=== PATIENT | female | born 1940 | race Caucasian/White ===

== ENCOUNTER 2017-12-11 15:58 | Emergency (ER) | payer MEDICARE ==
[~2017-12-11] VITALS: Ht 154.9 cm; Wt 69.5 kg
[2017-12-11] MEDS ORDERED: LISINOPRIL40 MG PO (16:08)
[2017-12-11] MEDS ORDERED: FUROSEMIDE20 MG PO (16:08)
[2017-12-11] MEDS ORDERED: HCTZ 25MG25 MG PO (16:08)
[2017-12-11] MEDS ORDERED: AMLODIPINE BESYL5 MG PO (16:08)
[2017-12-11] MEDS ORDERED: PRAVASTATIN SOD40 MG PO (16:08)
[2017-12-11 16:56] LABS: HEMATOCRIT 37.7 % (37.0-47.0); HEMOGLOBIN 12.4 g/dL (12.5-16.0); LYMPH# 1.2 (1.50-4.00); MEAN CELL VOLUME 87 fl (78-100); MEAN CORPUSCULAR HEMOGLOBIN 28 pg (27-31); MEAN CORPUSCULAR HGB CONC 33 g/dL (33-37); MEAN PLATELET VOLUME 10.3 fl (7.4-10.4); MONO # 0.9 (0.20-0.80); NEU # 8.3 (1.40-6.50); PLATELET COUNT 291 K/mm3 (130-400); RED BLOOD COUNT 4.36 M/mm3 (4.10-5.30); RED CELL DISTRIBUTION WIDTH 13.4 % (11.5-14.5); WHITE BLOOD COUNT 10.3 K/mm3 (4.8-10.8)
[2017-12-11 17:03] LABS: ALBUMIN 4.4 g/dL (3.5-5.0); CALCIUM 9.1 mg/dL (8.4-10.2); TOTAL BILIRUBIN 0.8 mg/dL (0.2-1.3); TOTAL PROTEIN 7.5 g/dL (6.3-8.2)
[2017-12-11 19:35] LABS: URINE APPEARANCE HAZY; URINE COLOR YELLOW
[2017-12-11 19:36] LABS: URINE BILIRUBIN NEGATIVE (NEGATIVE); URINE BLOOD TRACE (NEGATIVE); URINE GLUCOSE NEGATIVE (NEGATIVE); URINE KETONE NEGATIVE (NEGATIVE); URINE LEUKOCYTE ESTERASE 1+ (NEGATIVE); URINE NITRATE POSITIVE (NEGATIVE); URINE PROTEIN(semi-quant) TRACE mg/dL (NEGATIVE); URINE UROBILINOGEN NORMAL (NORMAL)
[2017-12-11] MEDS ORDERED: CEPHALEXIN500 M1 PO (19:46)
[2017-12-11] MEDS ORDERED: POTASSIUM CH2 MEQ/ML PO (19:48)
[2017-12-11] MEDS ORDERED: ZOFRAN ODT4 MG PO (19:50)
[2017-12-11 20:50] VITALS: BP 146/68
== END 2017-12-11 20:50 | disposition home or self-care (01) ==
LOC: ED 15:58
PROVIDERS: Nurse Practitioner
DX: N30.90 Cystitis, unspecified without hematuria (principal); R11.2 Nausea with vomiting, unspecified; R19.7 Diarrhea, unspecified; E87.6 Hypokalemia; I10 Essential (primary) hypertension; Z90.49 Acquired absence of other specified parts of digestive tract; Z79.899 Other long term (current) drug therapy
CPT/HCPCS: J0696; J2405; J2765; J7030

== ENCOUNTER 2023-05-29 10:32 | Emergency (ER) | payer MEDICARE ==
[~2023-05-29] VITALS: Ht 152.4 cm; Wt 68.8 kg
[~2023-05-29 10:32] MED LIST: AMLODIPINE BESYL5 MG PO; CEPHALEXIN500 M1 PO; FUROSEMIDE20 MG PO; HCTZ 25MG25 MG PO; LISINOPRIL40 MG PO; POTASSIUM CH2 MEQ/ML PO; PRAVASTATIN SOD40 MG PO; ZOFRAN ODT4 MG PO
[2023-05-29] MEDS ORDERED: AZO BLADDER CO300 MG PO (10:48)
[2023-05-29] MEDS ORDERED: Ketorolac 30 MG/ML VIAL IM ONE (11:30)
[2023-05-29] MEDS ORDERED: KETOROLAC10 MG PO (14:21)
[2023-05-29 14:33] VITALS: BP 198/90
[2023-06-07] MEDS ORDERED: CIPRO250 M1 PO (08:33)
[2023-06-07] MEDS ORDERED: CYCLOBENZAPRINE10 M1 PO (08:34)
[2023-06-07] MEDS ORDERED: LIDOCAINE PAIN1 EACH TP (08:36)
[2023-06-07] MEDS ORDERED: PREDNISONE20 M1 PO (08:38)
== END 2023-05-29 14:32 | disposition home or self-care (01) ==
LOC: ED 10:32
DX: M54.42 Lumbago with sciatica, left side (principal); I10 Essential (primary) hypertension
CPT/HCPCS: J1885

== ENCOUNTER 2023-06-02 16:55 | Emergency (ER) | payer MEDICARE ==
[~2023-06-02] VITALS: Ht 149.9 cm; Wt 68.8 kg
[~2023-06-02 16:55] MED LIST changes: +AZO BLADDER CO300 MG PO; +KETOROLAC10 MG PO
[2023-06-02] MEDS ORDERED: traMADol 50 MG TAB PO ONE (18:00)
[2023-06-02] MEDS ORDERED: Gabapentin 300 MG CAP PO ONE (19:30)
[2023-06-02] MEDS ORDERED: GABAPENTIN400 M2 PO (20:21)
[2023-06-02 21:06] VITALS: BP 183/71
[2023-06-07] MEDS ORDERED: CIPRO250 M1 PO (08:33)
[2023-06-07] MEDS ORDERED: CYCLOBENZAPRINE10 M1 PO (08:34)
[2023-06-07] MEDS ORDERED: LIDOCAINE PAIN1 EACH TP (08:36)
[2023-06-07] MEDS ORDERED: PREDNISONE20 M1 PO (08:38)
== END 2023-06-02 21:06 | disposition home or self-care (01) ==
LOC: ED 16:55
DX: M54.32 Sciatica, left side (principal)

== ENCOUNTER 2023-06-04 11:38 | Emergency (ER) | payer MEDICARE ==
[~2023-06-04] VITALS: Ht 152.4 cm; Wt 70.5 kg
[~2023-06-04 11:38] MED LIST changes: +GABAPENTIN400 M2 PO
[2023-06-04] MEDS ORDERED: CYCLOBENZAPRINE10 M1 PO (11:53)
[2023-06-04] MEDS ORDERED: MEDROL 4MG DOSPA4 MG PO (11:54)
[2023-06-04 13:34] LABS: ALBUMIN 3.8 g/dL (3.4-4.8); SODIUM 137 mmol/L (136-145)
[2023-06-04 13:37] LABS: GLUCOSE 140 mg/dL (65-105); TOTAL PROTEIN 6.5 g/dL (6.2-8.1)
[2023-06-04 13:38] LABS: CARBON DIOXIDE 23 mmol/L (23-31)
[2023-06-04 13:39] LABS: TOTAL BILIRUBIN 0.4 mg/dL (0.2-1.2)
[2023-06-04 13:42] LABS: AST-SGOT 18 U/L (5-34)
[2023-06-04 13:43] LABS: ALT/SGPT 10 U/L (0-55)
[2023-06-04 13:49] LABS: TROPONIN-I < 0.030 ng/mL (0.00-0.033)
[2023-06-04 13:51] LABS: BASO # 0.01 K/mm3 (0.02-0.10); HEMATOCRIT 34.2 % (37.0-47.0); HEMOGLOBIN 10.9 g/dL (12.5-16.0); LYMPH# 0.78 K/mm3 (1.50-4.00); MEAN CELL VOLUME 91 fl (78-100); MEAN CORPUSCULAR HEMOGLOBIN 29 pg (27-31); MEAN CORPUSCULAR HGB CONC 32 g/dL (33-37); MEAN PLATELET VOLUME 9.8 fl (7.4-10.4); MONO # 0.13 K/mm3 (0.20-0.80); NEU # 6.07 K/mm3 (1.40-6.50); PLATELET COUNT 216 K/mm3 (130-400); RED BLOOD COUNT 3.76 M/mm3 (4.10-5.30)
[2023-06-04 14:34] LABS: URINE APPEARANCE CLOUDY (CLEAR); URINE COLOR YELLOW (YELLOW)
[2023-06-04 14:35] LABS: URINE BILIRUBIN NEGATIVE (NEGATIVE); URINE BLOOD NEGATIVE (NEGATIVE); URINE GLUCOSE NEGATIVE (NEGATIVE); URINE KETONE NEGATIVE (NEGATIVE); URINE LEUKOCYTE ESTERASE TRACE (NEGATIVE); URINE NITRATE NEGATIVE (NEGATIVE); URINE PROTEIN(semi-quant) NEGATIVE (NEGATIVE)
[2023-06-04] MEDS ORDERED: cefTRIAXone 1 G in Water For Injection,Sterile 10 ML IV ONE (15:00)
[2023-06-04 15:15] VITALS: BP 125/57
[2023-06-07] MEDS ORDERED: CIPRO250 M1 PO (08:33)
[2023-06-07] MEDS ORDERED: CYCLOBENZAPRINE10 M1 PO (08:34)
[2023-06-07] MEDS ORDERED: LIDOCAINE PAIN1 EACH TP (08:36)
[2023-06-07] MEDS ORDERED: PREDNISONE20 M1 PO (08:38)
== END 2023-06-04 15:15 | disposition other institution (70) ==
LOC: ED 11:38
PROVIDERS: Physician Assistant
DX: N39.0 Urinary tract infection, site not specified (principal); R41.82 Altered mental status, unspecified; R53.1 Weakness; R29.6 Repeated falls
CPT/HCPCS: J0696